=== PATIENT | female | born 1945 | race Caucasian/White ===

== ENCOUNTER 2017-07-20 21:07 | Observation (INO) | payer MEDICARE, MEDICAID | END 2017-07-21 19:58 | disposition home or self-care (01) | LOC: D.M2 21:07 | DX: I25.110 Atherosclerotic heart disease of native coronary artery with unstable angina pectoris (principal) | CPT/HCPCS: 93458; C9600 ==

== ENCOUNTER 2017-07-31 10:48 | Outpatient (CLI) | payer MEDICARE, MEDICAID ==
[~2017-07-31] VITALS: Ht 167.6 cm; Wt 89.1 kg
--- NOTE | ~2017-07-31 | HEMODYNAMI ---
PATIENT:PAPO WHITESIDE MEDICAL RECORD: [id number] : 43 LOCATION:[facility] ADMISSION DATE: 07/31/17 Generatedon:07/31/201713:32 Patient name: PAPO WHITESIDE Patient #: [id number] SSN: DO B: 1945 Date of study: 07/31/2017 Page: Of Hemodynamic Procedure Report Patient Data Patient Demographics Procedure consent was obtained First Name: PAPO Gender: Female Last Name: STEVO : 1945 Middle Initial: F Age: 71 year(s) Patient #: [id number] Race: Unknown Additional ID: [id number] Contact details Address: [address] [place] [address] State: [place] City: [place] Zip code: [address] Past Medical History Allergies: No known allergies Admission Admission Data Admission Date: 07/31/2017 Admission Time: 10:48 Arrival Date: 07/31/2017 Arrival Time: 0:00 Procedure Procedure Types Cath Procedure PCI Procedure Coronary Stent Coronary Stent Initial Procedure Description Procedure Date Procedure Date: 07/31/2017 Procedure Start Time: 13:18 Procedure End Time: 13:30 Procedure Staff Name Function Josue Pryor MD Performing Physician Janet Paul RN Ranch Hand Supervisor Lin Reed RT Monitor Janet Paul RN Nurse Anayeli Rico RT Scrub Procedure Data Cath Procedure Fluoroscopy Diagnostic fluoroscopy Total fluoroscopy Time: 2.2 time: 2.2 min min Diagnostic fluoroscopy Total fluoroscopy dose: 271 dose: 271 mGy mGy Contrast Material Contrast Material Type Amount (ml) Isovue 300 41 Entry Location Entry Primary Successful Side Size Upsize Upsize Entry Closure Succes sful Closure Location (Fr) 1 (Fr) 2 (Fr) Remarks Device Remarks Femoral Right 6 Fr Exoseal artery Short Estimated blood loss: 10 ml Procedure Complications No complications Procedure Medications Medication Administration Route Dosage Oxygen NC 2 l/min Lidocaine 2% added to field 20 Heparin Flush Bag added to field 2 bags (1000units/500ml NS) 0.9% NaCl I.V. 100 ml/hr Versed I.V. 1 mg Fentanyl I.V. 50 mcg Heparin Bolus I.V. 4000 units Versed I.V. 1 mg Fentanyl I.V. 50 mcg Hemodynamics Rest Heart Rate: 48 (bpm) Snapshots Pre Cath Intra NCS Post Cath Vital Signs Time Heart Resp SPO2 etCO2 NIBP (mmHg) Rhythm Pain Sedation Rate (ipm) (%) (mmHg) Status Level (bpm) 13:09:57 47 19 94 0 126/70(111) NSR 0 (11) 10(A) , No pain 13:14:13 46 16 95 31.6 135/57(114) NSR 0 (11) 10(A) , No pain 13:18:27 52 15 95 42.1 138/61(99) NSR 0 (11) 10(A) , No pain 13:22:43 66 16 96 10.5 136/73(104) NSR 0 (11) 9(A) , No pain 13:26:59 69 16 95 0 143/69(106) NSR 0 (11) 9(A) , No pain 13:31:17 64 15 95 25.5 148/69(110) NSR 0 (11) 10(A) , No pain Medications Time Medication Route Dose Verified Delivered Reason Notes Effectiveness by by 13:14:08 Oxygen NC 2 Josue Buffie used for l/min [facility] Edvin sutton MD 13:14:16 Lidocaine 2% added 20ml Josue Buffie used for to vial St Edvin Paul RN procedure field AGRAWAL 13:14:22 Heparin Flush added 2 Josue Buffie used for Bag to bags St Edvin Paul RN procedure (1000units/500ml field AGRAWAL NS) 13:14:33 0.9% NaCl I.V. 100 Josue Buffie Per physician ml/hr St Edvin Paul RN, MD 13:18:56 Versed I.V. 1 mg Josue Buffie for sedation St Edvin Paul RN, MD 13:19:02 Fentanyl I.V. 50 Josue Issaie for sedation mcg [facility] Edvin Paul RN, MD 13:21:07 Heparin Bolus I.V. 4000 Josue Buffie for verifi ed units [facility] Edvin Paul RN anticoagulation with dr MD hernandez 13:24:53 Versed I.V. 1 mg Josue Buffie for sedation St Edvin Paul RN, MD 13:24:57 Fentanyl I.V. 50 Josue Gonzales for sedation [facility] [place] [facility] RN, MD Procedure Log Time Note 12:49:10 Arrival Date: 07/31/2017 12:00:00 AM 12:50:23 Diagnostic Cath status Elective 12:50:25 Janet Paul RN sent for patient. Start room use. 12:50:26 Time tracking: Regular hours 12:50:32 Plan of Care:Hemodynamics will remain stable., Cardiac rhythm will remain stable., Comfort level will be maintained., Respiratory function will remain adequate., Patient/ family verbilizes understanding of procedure., Procedure tolerated without complication., Recovers from procedure without complications.. 13:08:45 Patient received from Pre/Post Procedure Room to CCL 2 Alert and oriented. Tansferred to table in Supine position. 13:08:46 Warm blankets applied, and malgorzata hugger turned on for patient comfort. 13:08:46 Correct patient and procedure confirmed by team. 13:08:48 Signed procedure consent form obtained from patient. 13:08:49 ECG and BP/O2 sat monitors applied to patient. 13:08:55 Vital chart was started 13:09:00 Full Disclosure recording started 13:09:08 H&P Date Dictated: 07/21/2017 Within 30 days and on chart., H&P Addendum completed by physician on day of procedure. (MUST COMPLETE FOR ALL OUTPATIENTS). 13:09:12 Pre-procedure instructions explained to patient. 13:09:15 Family in waiting room. 13:09:17 Patient NPO since Midnight. 13:09:26 Is the patient allergic to Iodine/contrast media? No. 13:09:32 Was the patient premedicated? Yes 13:09:32 Is patient on blood thinner?Yes 13:09:37 ACC The patient was administered the following blood thiners within the last 24 hours: ACCPlavix 13:09:45 Patient diabetic? No. 13:09:51 Snore? Yes 13:09:54 Sleep apnea? No 13:10:02 Patient pain scale 0/10 ?. 13:10:13 Lab results completed and on chart. 13:10:18 Right groin area was prepped with chlora-prep and draped in sterile fashion 13:10:19 Alarms reviewed by R. N. 13:10:20 Sharps counted by scrub and verified by R.N. 13:10:21 Physician paged 13:11:12 Baseline sample Acquired. 13:11:19 Rhythm: sinus rhythm 13:14:08 Oxygen 2 l/min NC was administered by Janet Paul RN; used for procedure; 13:14:16 Lidocaine 2% 20ml vial added to field was administered by Janet Paul RN; used for procedure; 13:14:22 Heparin Flush Bag (1000units/500ml NS) 2 bags added to field was administered by Janet Paul RN; used for procedure; 13:14:33 0.9% NaCl 100 ml/hr I.V. was administered by Janet Paul RN; Per physician; 13:18:06 Physician arrived 13:18:06 --------ALL STOP TIME OUT------ 13:18:07 Final Timeout: patient, procedure, and site verified with staff and physician. All members of the team are in agreement. 13:18:09 Right groin site verified by team. 13:18:13 Physical assessment completed. ASA score P 2 - A patient with mild systemic disease as per Josue Pryor MD. 13:18:17 Sedation plan: IV Moderate Sedation Medication:Versed, Fentanyl 13:18:33 Procedure started. 13:18:43 Local anesthetic to right femoral artery with Lidocaine 2% by Josue Pryor MD.INITIAL ACCESS ONLY 13:18:55 A 6 Fr Short sheath was inserted into the Right Femoral artery 13:18:56 Versed 1 mg I.V. was administered by Janet Paul RN; for sedation; 13:19:02 Fentanyl 50 mcg I.V. was administered by Janet Paul RN; for sedation; 13:19:06 Zero performed for pressure channel P1 13:19:49 6 Fr EBU 3.5 guide catheter was inserted over the wire 13:20:01 Use device set Femoral Dx 13:20:02 ACIST Syringe (88390) opened to sterile field. 13:20:04 Bag Decanter () opened to sterile field. 13:20:05 Medline Cath Pack ([id number]) opened to sterile field. 13:20:35 DIAGNOSTIC WIRE .035 260cm J wire ([id number]) opened to sterile field. 13:20:37 ACIST Hand Control (94003) opened to sterile field. 13:20:37 ACIST Manifold (04630) opened to sterile field. 13:20:46 Tegaderm 4 x 4 (1626W) opened to sterile field. 13:20:47 PERCUTANEOUS ENTRY 19GA needle opened to sterile field. 13:20:51 SHEATH 6FR Glenarm ([id number]) opened to sterile field. 13:20:52 GUIDE 6FR EBU 3.5 catheter ([id number]) opened to sterile field. 13:21:07 Heparin Bolus 4000 units I.V. was administered by Janet Paul RN; for anticoagulation; verified with dr hernandez 13:22:42 whisp wire advanced. 13:22:52 WHISPER 300cm guide wire ([id number]) opened to sterile field. 13:24:53 Versed 1 mg I.V. was administered by Janet Paul RN; for sedation; 13:24:57 Fentanyl 50 mcg I.V. was administered by Janet Paul RN; for sedation; 13:26:55 Inflation Number: 1 A DAVI OTW 2.5 x 26 stent ([id number]) was prepped and advanced across the Mid CX. The stent was deployed at 14 PAIGE for 0:39 (min:sec). 13:28:13 EXOSEAL 6Fr (EX600) opened to sterile field. 13:28:27 Wire removed. 13:28:28 Guide catheter removed. 13:28:41 Sheath removed intact; hemostasis achieved with Exoseal to the Right Femoral artery. 13:28:44 Procedure ended.(Physican Out) 13:28:58 Fluoroscopy time 02.20 minutes. 13:29:04 Fluoroscopy dose: 271 mGy 13:29:04 Flurop Dose total: 271 13:29:08 Contrast amount:Isovue 300 41ml. 13:29:10 Sharps counted by scrub and verified by R.N. 13:29:13 Insertion/operative site no bleeding no hematoma. 13:29:19 Post-op/insertion site Right Femoral artery dressed using a 4 x 4 and Tegaderm. 13:29:24 Post right femoral artery:stable 13:29:26 Post Procedure Pulses reassessed and unchanged 13:29:30 Post procedure rhythm: sinus rhythm 13:29:33 Estimated blood loss: 10 ml 13:29:35 Post procedure instruction explained to patient.Patient verbalizes understanding. 13:29:47 Procedure and supply charges have been captured, reviewed, submitted and are correct. 13:30:34 Procedure Complication : No complications 13:30:37 Vital chart was stopped 13:30:37 See physician's report for complete and final results. 13:30:39 Report given to Pre/Post Procedure Room. 13:30:43 Patient transfered to Pre/Post Procedure Room with Stretcher. 13:30:45 Procedure ended. 13:30:45 Full Disclosure recording stopped 13:30:49 End room use (Document Last) Intervention Summary Intervention Notes Time ActionType Lesion and Equipment Action# Pressure Duration Attributes Used 13:26:55 Place stent Mid CX DAVI OTW 2.5 1 14 00:39 x 26 stent ([id number]) Device Usage Item Name Manufacture Quantity Catalog Hospital Part Current Minim al Lot# / Number Charge Number Stock Stock Serial# Code ACIST Syringe Acist 1 32744 892013 314621 855788 20 (66184) Medical Systems Inc Bag Decanter Microtek 1 2001S 060487 26085 688761 5 (2001S) Medical Inc. Medline Cath Cardinal 1 [id number] 886707 [address] [facility] [place] ([id number]) DIAGNOSTIC St Eliecer 1 051255 710697 360037 061454 30 WIRE .035 260cm J wire (034683) ACIST Hand Acist 1 97330 330263 325632 980707 5 Control Medical (75607) Systems Inc ACIST Acist 1 07615 887366 613601 402176 5 Manifold Medical (91885) Systems Inc Tegaderm 4 x 3M 1 1626W 540681 967081 077919 5 4 (1626W) PERCUTANEOUS Cook Medical 1 X53376 164690 896886 5 ENTRY 19GA needle SHEATH 6FR Terumo 1 PBR487 741989 511499 499906 40 Glenarm (RXT218) GUIDE 6FR EBU Medtronic 1 [id number] 709504 39663 043958 3 3.5 catheter (LA6AQY02) WHISPER 300cm Flores 1 [id number] 300332 979849 118900 5 guide wire Vascular ([id number]) DAVI OTW 2.5 Medtronic 1 [id number] 448742 62204 271183 5 [id number] x 26 stent ([id number]) EXOSEAL 6Fr Cardinal 1 EX600 557256 885208 886530 10 (EX600) Health Signature Audit [place] Stage Time Signature Unsigned Intra-Procedure 07/31/2017 Lin Reed 1:32:21 PM RT(R) Signatures Monitor : Lin Reed Signature : RT Date : Time : [id number] [place] [address]
--- NOTE | ~2017-07-31 | OP ---
PATIENT NAME: PAPO WHITESIDE MEDICAL RECORD: [id number] :43 LOCATION:D.[facility] ADMISSION DATE: SURGEON: JOSEE NORRIS MD DATE OF OPERATION: 07/31/2017 PROCEDURE: PTCA stent of circumflex. DESCRIPTION OF PROCEDURE: After 6-Burkinan sheath was placed in the right femoral artery, an EBU 3.5 catheter provided excellent guide catheter support followed by a 300 cm Whisper wire, which was placed across the diffuse 80% stenosis of the circumflex down root of portion of vessel. Stent deployed was a 2.5 x 26 Lonny drug-eluting stent up to 14 atmospheres. Final injection shows excellent resolution of 80% diffuse stenosis, no significant residual. MERON flow was 3 throughout the procedure. Heparin was used during the case. ExoSeal device was used to close. Returned to the [facility] in stable condition. TRANSINT:[id number] Voice Confirmation ID: [id number] DOCUMENT ID: [id number] JOSEE NORRIS MD CC: [id number] DICTATION DATE: 07/31/17 1339 SHOE TURNER: 07/31/17 1422 REG [facility] [address] [id number]
[~2017-07-31 10:48] MED LIST: ASPIRIN325 MG PO; CINNAMON500 MG PO; DESITIN DIAPER113 GM PO; DESITIN DIAPER113 GM TOPICAL; GLUCOSAMINE HC500 MG PO; L-LYSINE500 M1 PO; METOPROLOL TART25 MG PO; MULTIPLE VITAMI1 TA1 PO; PLAVIX75 MG PO; PRAVACHOL20 MG PO
[2017-07-31 11:12] VITALS: BP 167/69; Ht 167.6 cm; Wt 89.1 kg
[2017-07-31 11:20] LABS: BASOPHILS 0.5 % (0-2); EOSINOPHILS 2.8 % (0-7); HEMOGLOBIN 13.2 g/dL (12-16); IMMATURE GRANULOCYTES 0.1 % (0-5); LYMPHOCYTES 32.8 % (15-50); MCH 30.1 pg (26.0-34.0); MCHC 33.8 g/dL (31.0-37.0); MEAN PLATELET VOLUME 11.9 fL (7.4-10.4); MONOCYTES 8.2 % (2-11); NEUTROPHILS 55.6 % (40-80); PLATELET COUNT 255 10x3/uL (130-400); RBC 4.38 10x6/uL (4.00-5.40); RDW 13.1 % (11.5-14.5); WBC 10.9 10x3/uL (4.8-10.8)
[2017-07-31 11:34] LABS: ANION GAP 11.5 mmol/L (8-16); CALCIUM 8.8 mg/dL (8.5-10.1); CARBON DIOXIDE 28.2 mmol/L (21.0-32.0); CREATININE - SERUM 0.8 mg/dL (0.6-1.3); POTASSIUM - SERUM 3.7 mmol/L (3.5-5.1)
== END 2017-07-31 17:30 | disposition home or self-care (01) ==
LOC: D.CATH 10:48
PROVIDERS: Internal Medicine Interventional Cardiology
DX: I25.119 Atherosclerotic heart disease of native coronary artery with unspecified angina pectoris (principal); Z01.812 Encounter for preprocedural laboratory examination

== ENCOUNTER → 2018-10-24 13:42 | Outpatient (CLI) | payer MEDICARE, MEDICAID ==
[2017-07-31 11:12] VITALS: BMI 31.7
--- NOTE | 2018-10-30 13:26 | EC ---
PATIENT:PAPO WHITESIDE DATE OF SERVICE: 10/24/18 SEX: F MEDICAL RECORD: [id number] DATE OF : 43 LOCATION:D[facility] AGE OF PATIENT: 73 ADMISSION DATE: 10/24/18 REFERRING PHYSICIAN: INTERPRETING PHYSICIAN: JOSEE NORRIS MD ECHOCARDIOGRAM REPORT ECHO CHARGES 4 ECHO COMPLETE Date: 10/24/18 CLINICAL DIAGNOSIS: CAD/ASSESS EF AND VALVES HX OF CVA/HTN ECHOCARDIOGRAPHIC MEASUREMENTS (adult normal given) AC root (d.<3.7cm) 3.4 cm LV Septum d (<1.2 cm> 1.1 cm Valve Excursion 1.7 cm LV Septum (systole) 1.5 cm Left Atria (s.<4.0cm> 3.4 cm LVPW d(<1.2cm) 1.6 cm RV (d.<2.3cm) 3.9 cm LVPW (sytole) 1.7 cm LV diastole(<5.6CM) 4.4 cm MV E-F(>70mm/sec) cm LV systole 3.2 cm LVOT Diameter 2.0 cm MV exc.(>10mm) 1.4 cm Est.ejection fraction (50-75%) % DOPPLER: LVIT cm/sec A 84.0 cm/sec E 67.0 cm/sec LA cm/sec RVSP 21 mmHg LVOT 119 cm/sec AOP1/2T m/s Asc. Ao 184 cm/sec RVOT 71 cm/sec RA cm/sec PA 134 cm/sec AV Gradient Peak 13.49mmHg AV Mean 6.64 mmHg AV Area 2.6 cm MV Gradient Peak 4.09 mmHg MV Mean 1.14 mmHg MV Area cm COMMENTS: Fire Fighters Dispatcher: 2 DAPHNE ULRICH Box Maker: 3 Dr. Tejada TAPE# PACS Pericardial Effusion N DATE OF SERVICE: 10/24/2018 Adequate 2-D, color-flow and spectral Doppler, and M-mode. No LVH. LV internal dimensions are normal. Wall motion is normal. EF is 55%. Aortic valve is tricuspid. No evidence of stenosis by Doppler interrogation. Left atrium is normal. Mitral valve shows no prolapse. Trace MR. Right-sided chambers are grossly normal. Trace TR. TRANSINT:[id number] Voice Confirmation ID: [id number] DOCUMENT ID: [id number] ECHOCARDIOGRAM REPORT [id number] PAPO WHITESIDE,JOSEE Martinez MD at 1326 CC: [id number] DICTATION DATE: 10/25/18 1313 VETERINARY ANATOMIST: 10/25/18 1445 DEP CLI 10/24/18 [place] [address] [id number] [place] [id number]
== END | disposition home or self-care (01) ==
LOC: D.HCCARDIO 10-02 14:30
PROVIDERS: ATTEND Internal Medicine Interventional Cardiology
DX: I25.10 Atherosclerotic heart disease of native coronary artery without angina pectoris (principal)